=== PATIENT | male | born 1980 ===

== ENCOUNTER 2024-04-27 15:26 | Emergency (ER) | payer OTHER ==
[~2024-04-27] VITALS: Ht 162.6 cm; Wt 65.8 kg
[~2024-04-27 15:26] MED LIST: CITALOPRAM HBR20 M2 PO; HYDROXYZ HCL; LEVE500 PO; OXYACE5T PO; Prozac20 MG PO; Vistaril50 MG PO
[2024-04-27] MEDS ORDERED: Thiamine HCl 100 MG Tab PO ONE (15:40)
[2024-04-27] MEDS ORDERED: PHENobarbital Sodium 65MG / ML 1ML Vial IV ONE (15:40)
[2024-04-27] MEDS ORDERED: Multivitamins 1 Tab PO ONE (15:40)
[2024-04-27] MEDS ORDERED: Lactated Ringer's 1,000 ML IV ONE ×2 (15:40→15:50)
[2024-04-27] MEDS ORDERED: Folic Acid 1 MG TAB PO ONE (15:40)
[2024-04-27 15:57] LABS: BASOPHILS ABSOLUTE AUTO 0.03 K/mm3 (0.00-0.23); BASOPHILS PERCENT AUTO 0 % (0-2); EOSINOPHILS ABSOLUTE AUTO 0.01 K/mm3 (0.00-0.68); EOSINOPHILS PERCENT AUTO 0 % (0-6); Hematocrit 37.5 % (37.0-53.0); Hemoglobin 13.1 g/dL (13.5-17.5); IMMATURE GRAN ABSOLUTE AUTO 0.04 K/mm3 (0.00-0.10); IMMATURE GRAN PERCENT AUTO 1 % (0-1); LYMPHOCYTES ABSOLUTE AUTO 0.21 K/mm3 (0.84-5.20); LYMPHOCYTES PERCENT AUTO 2 % (21-46); MONOCYTES ABSOLUTE AUTO 0.55 K/mm3 (0.16-1.47); MONOCYTES PERCENT AUTO 6 % (4-13); Mean Corpuscular HGB 34.6 pg (26.0-34.0); Mean Corpuscular HGB Conc 34.9 g/dL (31.5-36.5); Mean Corpuscular Volume 99 fL (80-100); NEUTROPHILS ABSOLUTE AUTO 7.74 K/mm3 (1.96-9.15); NEUTROPHILS PERCENT AUTO 90 % (41-73); RDW Coefficient Variation 12.3 % (11.7-14.2); RDW Standard Deviation 45.1 fL (35.1-46.3); Red Blood Cell Count 3.79 M/mm3 (4.30-5.90); White Blood Cell Count 8.58 K/mm3 (4.00-11.30)
[2024-04-27 15:58] LABS: Mean Platelet Volume 9.8 fL (9.1-12.4); Platelet Count 66 K/mm3 (150-400)
[2024-04-27 16:18] LABS: Albumin, Blood 4.2 g/dL (3.4-5.0); Albumin/Globulin Ratio 1.3 (0.8-1.8); Bilirubin, Total 0.5 mg/dL (0.1-1.0); Bun/Creatinine Ratio 11.9 (12.0-20.0); Creatinine, Blood 0.67 mg/dL (0.60-1.20); Globulin, Blood 3.3 g/dL (2.2-4.0); Magnesium, Blood 1.8 mg/dL (1.6-2.4); Potassium, Blood 3.5 mmol/L (3.5-5.5); Total Protein, Blood 7.5 g/dL (6.4-8.2)
[2024-04-27] MEDS ORDERED: CHLO25 PO (16:29)
[2024-04-27 16:54] VITALS: BP 135/88
== END 2024-04-27 16:55 | disposition home or self-care (01) ==
LOC: ER 15:26
PROVIDERS: Emergency Medicine
DX: F10.939 Alcohol use, unspecified with withdrawal, unspecified (principal)
CPT/HCPCS: 80053; 83690; 83735; 85025; 96361; 96374; 99285; 99285-25; A9270; J2560; J7120

== ENCOUNTER 2025-05-13 19:34 | Inpatient (IN) | payer OTHER ==
[~2025-05-13] VITALS: Ht 162.6 cm; Wt 60.1 kg
[~2025-05-13 19:34] MED LIST changes: +CHLO25 PO
[2025-05-13] MEDS ORDERED: Midazolam HCl 1MG / ML 2ML Vial IV ONE (20:20)
[2025-05-13 20:22] LABS: BASOPHILS ABSOLUTE AUTO 0.04 K/mm3 (0.00-0.23); BASOPHILS PERCENT AUTO 1 % (0-2); EOSINOPHILS ABSOLUTE AUTO 0.00 K/mm3 (0.00-0.68); EOSINOPHILS PERCENT AUTO 0 % (0-6); Hematocrit 34.7 % (37.0-53.0); Hemoglobin 11.8 g/dL (13.5-17.5); IMMATURE GRAN ABSOLUTE AUTO 0.05 K/mm3 (0.00-0.10); IMMATURE GRAN PERCENT AUTO 1 % (0-1); LYMPHOCYTES ABSOLUTE AUTO 0.29 K/mm3 (0.84-5.20); LYMPHOCYTES PERCENT AUTO 4 % (21-46); MONOCYTES ABSOLUTE AUTO 0.81 K/mm3 (0.16-1.47); MONOCYTES PERCENT AUTO 10 % (4-13); Mean Corpuscular HGB Conc 34.0 g/dL (31.5-36.5); Mean Corpuscular Volume 105 fL (80-100); NEUTROPHILS ABSOLUTE AUTO 6.76 K/mm3 (1.96-9.15); NEUTROPHILS PERCENT AUTO 85 % (41-73); NRBC ABSOLUTE 0.00 K/mm3 (0.00-0.02); NRBC Auto 0.0 /100 WBC (0.0-0.2); RDW Coefficient Variation 12.2 % (11.7-14.2); RDW Standard Deviation 48.0 fL (35.1-46.3)
[2025-05-13 20:24] LABS: Platelet Count 47 K/mm3 (150-400)
[2025-05-13 20:25] LABS: Alanine Aminotransfer (ALT/SGP 68.0 U/L (12-78); Albumin, Blood 3.6 g/dL (3.4-5.0); Albumin/Globulin Ratio 1.3 (0.8-1.8); Anion Gap 20.0 mmol/L (3-11); Aspartate Aminotrans (AST/SGOT 89.0 U/L (12-37); Bilirubin, Total 0.7 mg/dL (0.1-1.0); Blood Urea Nitrogen 5.0 mg/dL (8-24); CO2, Blood 17.0 mmol/L (21-32); Calcium, Blood 8.4 mg/dL (8.5-10.1); Chloride, Blood 98.0 mmol/L (98-108); Creatinine, Blood 0.67 mg/dL (0.60-1.20); Ethanol (Alcohol), Blood, Med 5.0 mg/dL; Globulin, Blood 2.8 g/dL (2.2-4.0); Glucose, Blood 131.0 mg/dL (70-99); Potassium, Blood 3.2 mmol/L (3.5-5.5); Sodium, Blood 132.0 mmol/L (136-145); Total Protein, Blood 6.4 g/dL (6.4-8.2)
[2025-05-13] MEDS ORDERED: Folic Acid 1 MG TAB PO ONE (20:25)
[2025-05-13] MEDS ORDERED: NS 1,000 ML IV SCH (20:25)
[2025-05-13 21:00] VITALS: BP 129/89
[2025-05-13] MEDS ORDERED: Midazolam HCL 1 MG/ML 5MLVIAL IV ONE (21:10)
[2025-05-13] MEDS ORDERED: Mag Sulfate 1 GM/D5% 100ML 100 ML IV ONE (21:20)
[2025-05-13 21:30] VITALS: BP 141/90
[2025-05-13 21:40] LABS: pH Blood Venous 7.49 (7.34-7.37)
[2025-05-13 22:00] VITALS: BP 132/86
[2025-05-13 22:30] VITALS: BP 122/86
[2025-05-13 23:00] VITALS: BP 125/84
[2025-05-13 23:30] VITALS: BP 121/86
[2025-05-14] VITALS (22 sets, daily range): BP systolic 113–155; BP diastolic 82–111
--- NOTE | 2025-05-14 00:30 | NUR ---
ADMISSION NOTE PT ARRIVED TO UNIT ON GURNEY FROM ED. PT IN NO APPARENT DISTRESS. PT SELF TRANSFERRED TO OUR [facility] WITHOUT DIFFICULTY. PT ALERT AND ORIENTED. CIWA 7 FOR HEADACHE, TREMOR, ANXIETY. MEDICATED PER DEC. AFEBRILE. VSS. HEAD WOUND NOT VISUALIZED DUE TO PRESSURE DRESSING RECENTLY PLACED. COBAN AND GAUZE DRY VISUALLY. PT SAYS PAIN IS 4/10. PT DENIES CHEST PAIN/PRESSURE, SOB, AB PAIN, N/V. ACCORDING TO PT, HE HAS BEEN TRYING TO WEAN FROM ALCHOHOL FOR MANY WEEKS BY DRINKING 2-3 BEERS EVERY OTHER DAY. PT HAD A LOC VS SEIZURE EPISODE SEVERAL WEEKS AGO THAT BROUGHT HIM VIA AMBULANCE TO [facility] (UNFORTUNATELY WE DO NOT HAVE ACCESS TO THOSE RECORDS. THE EPISODE THAT BROUGHT HIM HERE: HE DRANK HALF A BEER AROUND 1400, THEN WATER. HE WAS PLAYING POOL. SITTING DOWN AND WAITING TURN, HE STOOD UP AND THEN LOST CONSCIOUSNESS AND WOKE UP IN AMBULANCE. A FRIEND REPORTEDLY OBSERVED SEIZURE LIKE BEHAVIOR. WILL REVIEW AND CONTINUE PLAN OF CARE.
[2025-05-14 03:55] LABS: BASOPHILS ABSOLUTE AUTO 0.03 K/mm3 (0.00-0.23); BASOPHILS PERCENT AUTO 1 % (0-2); EOSINOPHILS ABSOLUTE AUTO 0.01 K/mm3 (0.00-0.68); EOSINOPHILS PERCENT AUTO 0 % (0-6); Hematocrit 34.4 % (37.0-53.0); Hemoglobin 12.0 g/dL (13.5-17.5); IMMATURE GRAN ABSOLUTE AUTO 0.03 K/mm3 (0.00-0.10); IMMATURE GRAN PERCENT AUTO 1 % (0-1); LYMPHOCYTES ABSOLUTE AUTO 0.39 K/mm3 (0.84-5.20); LYMPHOCYTES PERCENT AUTO 7 % (21-46); MONOCYTES ABSOLUTE AUTO 0.48 K/mm3 (0.16-1.47); MONOCYTES PERCENT AUTO 9 % (4-13); Mean Corpuscular HGB Conc 34.9 g/dL (31.5-36.5); Mean Corpuscular Volume 102 fL (80-100); NEUTROPHILS ABSOLUTE AUTO 4.60 K/mm3 (1.96-9.15); NEUTROPHILS PERCENT AUTO 83 % (41-73); NRBC ABSOLUTE 0.00 K/mm3 (0.00-0.02); NRBC Auto 0.0 /100 WBC (0.0-0.2); RDW Coefficient Variation 12.1 % (11.7-14.2); RDW Standard Deviation 45.4 fL (35.1-46.3)
[2025-05-14 04:05] LABS: Platelet Count 42 K/mm3 (150-400)
[2025-05-14 04:13] LABS: Alanine Aminotransfer (ALT/SGP 62.0 U/L (12-78); Albumin, Blood 3.4 g/dL (3.4-5.0); Albumin/Globulin Ratio 1.2 (0.8-1.8); Anion Gap 10.0 mmol/L (3-11); Aspartate Aminotrans (AST/SGOT 77.0 U/L (12-37); Bilirubin, Total 0.8 mg/dL (0.1-1.0); Blood Urea Nitrogen 4.0 mg/dL (8-24); CO2, Blood 25.0 mmol/L (21-32); Calcium, Blood 8.0 mg/dL (8.5-10.1); Chloride, Blood 102.0 mmol/L (98-108); Creatinine, Blood 0.67 mg/dL (0.60-1.20); Globulin, Blood 2.8 g/dL (2.2-4.0); Glucose, Blood 76.0 mg/dL (70-99); Potassium, Blood 3.1 mmol/L (3.5-5.5); Sodium, Blood 134.0 mmol/L (136-145); Total Protein, Blood 6.2 g/dL (6.4-8.2)
--- NOTE | 2025-05-14 05:57 | NUR ---
SHIFT SUMMARY PT LYING IN BED SLEEPING, AWAKES TO VOICE AND IS ALERT AND ORIENTED TO ALL. PT IS TREMULOUS, HAS A HEADACHE (THOUGH LIKELY DIRECTLY RELATED TO FALL YESTERDAY), MILD DIAPHORESIS/ANXIETY, GIVING HIM A CIWA OF 7. PT MEDICATION WITH 50 MG LIBRIUM AND 1 MG ATIVAN ON TWO SEPARATE OCCASIONS. AFEBRILE. VSS. SINUS RHYTHM IN THE 90'S WITH STABLE TO MILDLY ELEVATED BP. NO CHEST PAIN/PRESSURE, SOB. NO AB PAIN. LUNGS CLEAR. NO N/V. ONE EPISODE OF INCONTINENT, MID-URINATION DIARRHEA DURING SHIFT. 1.2 L PALE YELLOW URINE OUTPUT. BEDSIDE SHIFT REPORT GIVEN TO DIAMANTE COSBY RN.
--- NOTE | 2025-05-14 06:20 | NUR ---
UPDATE: PT NPO FOR UNKNOWN REASON. PT PASSED [place] [facility]. WILL RELAY THIS INFO TO DAY RN SO THAT PT'S NUTRITION DOES NOT SUFFER UNNECCESARILY.
[2025-05-14] MEDS ORDERED: NS 250 ML IV PRN (07:55)
[2025-05-14 09:06] LABS: Magnesium, Blood 2.4 mg/dL (1.6-2.4); Phosphorus, Blood 2.9 mg/dL (2.5-4.9)
--- NOTE | 2025-05-14 20:36 | NUR ---
ASSUME CARE: BEDSIDE REPORT RECIEVED FROM DAYSHIFT RN. PT A/Ox4 AND ABLE TO MAKE NEEDS KNOWN. VSS, MONITOR SHOWS SINUS TACH, RATE 120-130s. PT ABLE TO AMBULATE WITH NURSE ASSIST. PT CIWA 3, SOME TREMORS NOTED. PT STATES HE IS ALWAYS TREMULOUS. PT INSTRUCTED TO USE CALL LIGHT FOR ASSISTANCE. WILL UPDATE NEEDED.
[2025-05-15] VITALS (16 sets, daily range): BP systolic 102–135; BP diastolic 77–97
[2025-05-15 03:44] LABS: BASOPHILS ABSOLUTE AUTO 0.03 K/mm3 (0.00-0.23); BASOPHILS PERCENT AUTO 1 % (0-2); EOSINOPHILS ABSOLUTE AUTO 0.06 K/mm3 (0.00-0.68); EOSINOPHILS PERCENT AUTO 1 % (0-6); Hematocrit 38.5 % (37.0-53.0); Hemoglobin 13.1 g/dL (13.5-17.5); IMMATURE GRAN ABSOLUTE AUTO 0.02 K/mm3 (0.00-0.10); IMMATURE GRAN PERCENT AUTO 0 % (0-1); LYMPHOCYTES ABSOLUTE AUTO 0.69 K/mm3 (0.84-5.20); LYMPHOCYTES PERCENT AUTO 15 % (21-46); MONOCYTES ABSOLUTE AUTO 0.57 K/mm3 (0.16-1.47); MONOCYTES PERCENT AUTO 12 % (4-13); Mean Corpuscular HGB Conc 34.0 g/dL (31.5-36.5); Mean Corpuscular Volume 103 fL (80-100); NEUTROPHILS ABSOLUTE AUTO 3.32 K/mm3 (1.96-9.15); NEUTROPHILS PERCENT AUTO 71 % (41-73); NRBC ABSOLUTE 0.00 K/mm3 (0.00-0.02); NRBC Auto 0.0 /100 WBC (0.0-0.2); Platelet Count 53 K/mm3 (150-400); RDW Coefficient Variation 11.9 % (11.7-14.2); RDW Standard Deviation 44.8 fL (35.1-46.3)
[2025-05-15 04:15] LABS: Anion Gap 10.0 mmol/L (3-11); Blood Urea Nitrogen 11.0 mg/dL (8-24); CO2, Blood 23.0 mmol/L (21-32); Calcium, Blood 8.9 mg/dL (8.5-10.1); Chloride, Blood 104.0 mmol/L (98-108); Creatinine, Blood 0.65 mg/dL (0.60-1.20); Glucose, Blood 91.0 mg/dL (70-99); Potassium, Blood 3.2 mmol/L (3.5-5.5); Sodium, Blood 134.0 mmol/L (136-145)
--- NOTE | 2025-05-15 05:36 | NUR ---
SHIFT SUMMARY: PT A/Ox4 AND ABLE TO MAKE NEEDS KNOWN. PT ABLE TO SLEEP FOR MOST OF THE NIGHT. VSS, MONITOR SHOWS SINUS RYTHM TO SINUS TACH, RATE 80-130s, PT MAINLY TACHY W/ACTIVITY. CIWA 2, PT MILDLY TREMULOUS. PT ABLE TO AMBULATE TO TOILET W/ SBA, UNSTEADY ON FEET AT TIMES. PT DENIES PAIN TO HEAD LAC. WILL REPORT TO ONCOMING RN.
[2025-05-15] MEDS ORDERED: Peg 400/Hypromellose/Glycerin 15 DROP/ML BTL BOTHEYES PRN (14:40)
[2025-05-15] MEDS ORDERED: Dextran/Hypromellose/Glycerin 15 DROP/ML BTL BOTHEYES PRN (14:45)
[2025-05-16 03:23] VITALS: BP 106/88
[2025-05-16 03:40] LABS: BASOPHILS ABSOLUTE AUTO 0.05 K/mm3 (0.00-0.23); BASOPHILS PERCENT AUTO 1 % (0-2); EOSINOPHILS ABSOLUTE AUTO 0.06 K/mm3 (0.00-0.68); EOSINOPHILS PERCENT AUTO 1 % (0-6); Hematocrit 37.0 % (37.0-53.0); Hemoglobin 12.7 g/dL (13.5-17.5); IMMATURE GRAN ABSOLUTE AUTO 0.02 K/mm3 (0.00-0.10); IMMATURE GRAN PERCENT AUTO 1 % (0-1); LYMPHOCYTES ABSOLUTE AUTO 0.69 K/mm3 (0.84-5.20); LYMPHOCYTES PERCENT AUTO 16 % (21-46); MONOCYTES ABSOLUTE AUTO 0.65 K/mm3 (0.16-1.47); MONOCYTES PERCENT AUTO 15 % (4-13); Mean Corpuscular HGB Conc 34.3 g/dL (31.5-36.5); Mean Corpuscular Volume 103 fL (80-100); NEUTROPHILS ABSOLUTE AUTO 2.96 K/mm3 (1.96-9.15); NEUTROPHILS PERCENT AUTO 67 % (41-73); NRBC ABSOLUTE 0.00 K/mm3 (0.00-0.02); NRBC Auto 0.0 /100 WBC (0.0-0.2); Platelet Count 67 K/mm3 (150-400); RDW Coefficient Variation 11.9 % (11.7-14.2); RDW Standard Deviation 45.1 fL (35.1-46.3)
[2025-05-16 03:58] LABS: Alanine Aminotransfer (ALT/SGP 65.0 U/L (12-78); Albumin, Blood 3.3 g/dL (3.4-5.0); Albumin/Globulin Ratio 1.0 (0.8-1.8); Anion Gap 10.0 mmol/L (3-11); Aspartate Aminotrans (AST/SGOT 69.0 U/L (12-37); Bilirubin, Total 0.5 mg/dL (0.1-1.0); Blood Urea Nitrogen 12.0 mg/dL (8-24); CO2, Blood 25.0 mmol/L (21-32); Calcium, Blood 9.2 mg/dL (8.5-10.1); Chloride, Blood 105.0 mmol/L (98-108); Creatinine, Blood 0.7 mg/dL (0.60-1.20); Globulin, Blood 3.2 g/dL (2.2-4.0); Glucose, Blood 105.0 mg/dL (70-99); Magnesium, Blood 1.9 mg/dL (1.6-2.4); Potassium, Blood 3.5 mmol/L (3.5-5.5); Sodium, Blood 136.0 mmol/L (136-145); Total Protein, Blood 6.5 g/dL (6.4-8.2)
--- NOTE | 2025-05-16 04:27 | NUR ---
PT TRANSFERED TO UNIT DURING SHIFT. PATIENT ALERT AND ORIENTED X4. UP INDEPENDENTLY IN ROOM. SEIZURE PRECAUTIONS IN PLACE. ABLE TO MAKE NEEDS KNOWN. CIWA SCORE AT 0400 WAS 1. BED IN LOW POSITION WITH WHEELS LOCKED. CALL LIGHT WITHIN REACH.
[2025-05-16 07:25] VITALS: BP 101/89
[2025-05-16] MEDS ORDERED: ONE DAILY MUL400 MCG PO (09:32)
[2025-05-16] MEDS ORDERED: B-1100 M2 PO (09:32)
[2025-05-16] MEDS ORDERED: Nicoderm Cq1 EAC1 TOP (09:32)
--- NOTE | 2025-05-16 12:31 | NUR ---
ASSUMED CARE PT IS A/O X 4 ANXIOUS TO GO HOME AND DRINK (PER PATIENT). DR PABON EARLY IN AND STATED HE WILL DC PT. PT HAPPY AND WALKING IN [place], DOES NOT WANT MORNING MEDS REQUESTED IV TO BE REMOVED AND WAS GONG TO LEAVE. I TOLD PT NOT TO LEAVE AMA AND HE DECIDED HE WOULD WAIT FOR DC INSTRUCTIONS. 929 INSTRUCTIONS GIVEN PT REFUSED \WHEELCHAIR AND LEFT.
== END 2025-05-16 09:57 | disposition home or self-care (01) | DRG 897 ==
LOC: ER 19:34 → ICUE 23:08 → MEDS 05-16 03:30
PROVIDERS: Emergency Medicine; Internal Medicine; ADMIT Student in an Organized Health Care Education/Training Program
PROC: 0HQ0XZZ Repair Scalp Skin, External Approach (ICD-10-PCS; 2025-05-13)
PROC: HZ2ZZZZ Detoxification Services for Substance Abuse Treatment (ICD-10-PCS; principal; 2025-05-14)
DX: F10.231 Alcohol dependence with withdrawal delirium (principal); E87.20 Acidosis, unspecified; E87.1 Hypo-osmolality and hyponatremia; G40.909 Epilepsy, unspecified, not intractable, without status epilepticus; F41.9 Anxiety disorder, unspecified; F17.210 Nicotine dependence, cigarettes, uncomplicated; I45.10 Unspecified right bundle-branch block; D69.6 Thrombocytopenia, unspecified; E87.6 Hypokalemia; S01.01XA Laceration without foreign body of scalp, initial encounter; R74.01 Elevation of levels of liver transaminase levels; F11.90 Opioid use, unspecified, uncomplicated; D64.9 Anemia, unspecified; S09.90XA Unspecified injury of head, initial encounter; Z79.899 Other long term (current) drug therapy; W19.XXXA Unspecified fall, initial encounter
CPT/HCPCS: 12001; 36415; 70450; 72125; 80048; 80053; 80320; 82803; 83735; 84100; 85025; 93005; 93010; 94762; 96365-59; 96375-59; 96376-59; 99285-25; A9270; G0378; J2250; J3411; J3475; J7030; J7050

== ENCOUNTER 2025-06-24 13:34 | Inpatient (IN) | payer OTHER ==
[~2025-06-24] VITALS: Ht 170.2 cm; Wt 57.0 kg
[2025-06-24] VITALS (10 sets, daily range): BP systolic 118–134; BP diastolic 81–100
[~2025-06-24 13:34] MED LIST changes: +B-1100 M2 PO; +Nicoderm Cq1 EAC1 TOP; +ONE DAILY MUL400 MCG PO
[2025-06-24] MEDS ORDERED: LORazepam 2 MG/ML 1ML Injection IV ONE (13:45)
[2025-06-24] MEDS ORDERED: Diazepam 5 MG / ML 2ML SYR IV ONE ×2 (14:00→14:40)
[2025-06-24 14:06] LABS: pH Blood Venous 7.03 (7.34-7.37)
[2025-06-24] MEDS ORDERED: NS 1,000 ML IV SCH (14:15)
[2025-06-24 14:16] LABS: BASOPHILS ABSOLUTE AUTO 0.07 K/mm3 (0.00-0.23); BASOPHILS PERCENT AUTO 1 % (0-2); EOSINOPHILS ABSOLUTE AUTO 0.01 K/mm3 (0.00-0.68); EOSINOPHILS PERCENT AUTO 0 % (0-6); Hematocrit 46.5 % (37.0-53.0); Hemoglobin 15.1 g/dL (13.5-17.5); IMMATURE GRAN ABSOLUTE AUTO 0.03 K/mm3 (0.00-0.10); IMMATURE GRAN PERCENT AUTO 0 % (0-1); LYMPHOCYTES ABSOLUTE AUTO 0.95 K/mm3 (0.84-5.20); LYMPHOCYTES PERCENT AUTO 11 % (21-46); MONOCYTES ABSOLUTE AUTO 1.30 K/mm3 (0.16-1.47); MONOCYTES PERCENT AUTO 15 % (4-13); Mean Corpuscular HGB Conc 32.5 g/dL (31.5-36.5); Mean Corpuscular Volume 111 fL (80-100); NEUTROPHILS ABSOLUTE AUTO 6.33 K/mm3 (1.96-9.15); NEUTROPHILS PERCENT AUTO 73 % (41-73); NRBC ABSOLUTE 0.00 K/mm3 (0.00-0.02); NRBC Auto 0.0 /100 WBC (0.0-0.2); Platelet Count 96 K/mm3 (150-400); RDW Coefficient Variation 12.6 % (11.7-14.2); RDW Standard Deviation 52.4 fL (35.1-46.3)
[2025-06-24 14:33] LABS: Alanine Aminotransfer (ALT/SGP 42 U/L (12-78); Albumin, Blood 4.6 g/dL (3.4-5.0); Albumin/Globulin Ratio 1.2 (0.8-1.8); Anion Gap 21 mmol/L (3-11); Aspartate Aminotrans (AST/SGOT 54 U/L (12-37); Bilirubin, Total 0.6 mg/dL (0.1-1.0); Blood Urea Nitrogen 7 mg/dL (8-24); CO2, Blood 17 mmol/L (21-32); Calcium, Blood 10.3 mg/dL (8.5-10.1); Chloride, Blood 106 mmol/L (98-108); Creatinine, Blood 0.77 mg/dL (0.60-1.20); Ethanol (Alcohol), Blood, Med <3 mg/dL; Globulin, Blood 3.7 g/dL (2.2-4.0); Glucose, Blood 171 mg/dL (70-99); Potassium, Blood 4.3 mmol/L (3.5-5.5); Sodium, Blood 140 mmol/L (136-145); Total Protein, Blood 8.3 g/dL (6.4-8.2)
[2025-06-24] MEDS ORDERED: Ondansetron HCl 2 MG / ML 2ML Vial IV PRN (16:15)
[2025-06-24] MEDS ORDERED: LORazepam 2 MG/ML 1ML Injection IV PRN (16:15)
[2025-06-24] MEDS ORDERED: D5W-NS 1,000 ML IV SCH (16:15)
--- NOTE | 2025-06-24 19:06 | NUR ---
ADMIT NOTE: PT IS ALERT AND ORIENTED X 4, ABLE TO COMMUNICATE NEEDS. CIWA SCORE 8, LIBRIUM GIVEN PER DEC. PT HAS TREMORS IN UPPER EXT. PT DENIES ANY PAIN AT THIS TIME. PT IN SR WITH HR IN THE 80'S, BP STABLE. PT ON RA, NO RESP DISTRESS NOTED. PT DENIES NAUSEA/VOMITING, LAST BM 06/24. PT INCONTINENT AT TIMES, PUREWICK IN PLACE TO SUCTION. PT ORIENTED TO ROOM/CALL LIGHT SYSTEM. BED ALARM PLACED.
[2025-06-25] VITALS (19 sets, daily range): BP systolic 104–159; BP diastolic 84–105
[2025-06-25 03:42] LABS: Hematocrit 37.9 % (37.0-53.0); Hemoglobin 12.7 g/dL (13.5-17.5); Mean Corpuscular HGB Conc 33.5 g/dL (31.5-36.5); NRBC ABSOLUTE 0.00 K/mm3 (0.00-0.02); NRBC Auto 0.0 /100 WBC (0.0-0.2); Platelet Count 57 K/mm3 (150-400); RDW Coefficient Variation 12.3 % (11.7-14.2); RDW Standard Deviation 48.2 fL (35.1-46.3)
[2025-06-25 03:51] LABS: Mean Corpuscular Volume 105 fL (80-100)
[2025-06-25 03:57] LABS: Magnesium, Blood 2.3 mg/dL (1.6-2.4)
[2025-06-25 04:06] LABS: Albumin, Blood 3.3 g/dL (3.4-5.0); Anion Gap 7 mmol/L (3-11); Blood Urea Nitrogen 5 mg/dL (8-24); CO2, Blood 27 mmol/L (21-32); Chloride, Blood 104 mmol/L (98-108); Creatinine, Blood 0.72 mg/dL (0.60-1.20); Glucose, Blood 85 mg/dL (70-99); Phosphorus, Blood 3.6 mg/dL (2.5-4.9); Potassium, Blood 3.1 mmol/L (3.5-5.5); Sodium, Blood 135 mmol/L (136-145)
[2025-06-25 04:07] LABS: Calcium, Blood 8.1 mg/dL (8.5-10.1)
--- NOTE | 2025-06-25 05:37 | NUR ---
SHIFT SUMMARY A/O X3, OCCAS DISORIENTED TO DATE <2 DAYS, PLEASANT AND COOPERATIVELY FOLLOWING COMMANDS. MEDS GIVEN PER CIWA PRN T/O NIGHT. VSS AND AFEBRILE T/O SHIFT. DENIES DISTRESS AT THIS TIME. WILL UPDATE DAY RN WITH ALL OUTSTANDING ISSUES.
[2025-06-25] MEDS ORDERED: Enoxaparin 40 MG/0.4 ML SYR SC SCH (09:00)
--- NOTE | 2025-06-25 18:26 | NUR ---
SHIFT SUMMARY; PT IS ALERT AND ORIENTED TO SELF, PROGRESSIVELY GETTING MORE CONFUSED/ANXIOUS T/O SHIFT. PT DISORIENTED TO TIME/PLACE/SITUATION. MAX CIWA 18, PRN ATIVAN/LIBRIUM GIVEN PER DEC. PT ATTMEPTING TO GET OUT OF BED NOW. NOTIFIED, ORDERS TO PLACE PT IN ICU STATUS, SEE NEW MED ORDERS. PT REMAINS ON RA WITH SPO2 ABOVE 92% NO RESP DISTRESS NOTED. PT IN ST WITH HR BETWEEN 90-110'S , BLOOD PRESSURE STABLE. PT INCONT OF URINE ANS STOOL, ATTENDS IN PLACE. PT HAVING MULTIPLE LOOSE STOOLS, NOTIFIED. PLAN OF CARE ONGOING
[2025-06-25] MEDS ORDERED: LORazepam 2 MG/ML 1ML Injection IV PRN ×2 (18:35)
--- NOTE | 2025-06-25 18:58 | NUR ---
UPDATE: PT PULLED OUT IV, ATTEMPTING TO GET OUT OF BED. PT AGITATED WANTING TO GO " DOWN THE STREET" PT CONFUSED, ORIENTED TO SELF ONLY. PT HAVING VISUAL HALLUCINATIONS. PRECEDEX DRIP STARTED AT 0.4MCG/KG/HR.
--- NOTE | 2025-06-25 19:00 | NUR ---
ASSUMPTION OF CARE CARE OF PT ASSUMED FOLLOWING BEDSIDE SHIFT REPORT FROM DAY RN. PT IS ALERT AND ORIENTED TO SELF ONLY, PULLING AT CORDS AND TRYING TO GET OUT OF BED. PRECEDEX INFUSING AT 0.4 AND CIWA 14. WILL MEDICATE NEEDED. MAY REQUIRE RESTRAINTS IF INCREASING MEDICATION DOES NOT CALM PT DOWN. VSS. WILL REVIEW AND CONTINUE PLAN OF CARE.
[2025-06-26] VITALS (21 sets, daily range): BP systolic 99–156; BP diastolic 71–116
[2025-06-26 04:40] LABS: Anion Gap 9.0 mmol/L (3-11); Blood Urea Nitrogen 7.0 mg/dL (8-24); CO2, Blood 23.0 mmol/L (21-32); Calcium, Blood 8.8 mg/dL (8.5-10.1); Chloride, Blood 110.0 mmol/L (98-108); Creatinine, Blood 0.59 mg/dL (0.60-1.20); Glucose, Blood 117.0 mg/dL (70-99); Magnesium, Blood 2.2 mg/dL (1.6-2.4); Phosphorus, Blood 3.9 mg/dL (2.5-4.9); Potassium, Blood 3.3 mmol/L (3.5-5.5); Sodium, Blood 139.0 mmol/L (136-145)
--- NOTE | 2025-06-26 05:21 | NUR ---
Shift summary Pt lying in bed sleeping, awakes to voice and is alert to drowsy on Precedex 0.9 mcg/kg/hr. Pt oriented to self only and fluctuates between cooperative and trying to get out of bed and pull at cords, lines. Pt given 3 x 2mg Ativan throughout shift for CIWAs 14-17, with tremor and anxiety being most notable withdrawal symptoms. VSS, afebrile, sinus rhythm and stable BP with 100% saturation on RA. No complaints of chest pain/pressure, SOB, ab pain, n/v during shift. Loose stools reported on day shift yesterday did not continue during shift stacker. No BMs. 600ml yellow to pale yellow urine out during shift with several incontinent voids as well. Condom catheter currently in place and patent. 40 KCL ordered by provider for K of 3.3. Bedside shift report given to oncoming RN.
[2025-06-26 08:50] LABS: BASOPHILS ABSOLUTE AUTO 0.02 K/mm3 (0.00-0.23); BASOPHILS PERCENT AUTO 0 % (0-2); EOSINOPHILS ABSOLUTE AUTO 0.05 K/mm3 (0.00-0.68); EOSINOPHILS PERCENT AUTO 1 % (0-6); Hematocrit 42.7 % (37.0-53.0); Hemoglobin 14.9 g/dL (13.5-17.5); IMMATURE GRAN ABSOLUTE AUTO 0.01 K/mm3 (0.00-0.10); IMMATURE GRAN PERCENT AUTO 0 % (0-1); LYMPHOCYTES ABSOLUTE AUTO 0.29 K/mm3 (0.84-5.20); LYMPHOCYTES PERCENT AUTO 5 % (21-46); MONOCYTES ABSOLUTE AUTO 0.46 K/mm3 (0.16-1.47); MONOCYTES PERCENT AUTO 9 % (4-13); Mean Corpuscular HGB Conc 34.9 g/dL (31.5-36.5); Mean Corpuscular Volume 103 fL (80-100); NEUTROPHILS ABSOLUTE AUTO 4.61 K/mm3 (1.96-9.15); NEUTROPHILS PERCENT AUTO 85 % (41-73); NRBC ABSOLUTE 0.00 K/mm3 (0.00-0.02); NRBC Auto 0.0 /100 WBC (0.0-0.2); Platelet Count 53 K/mm3 (150-400); RDW Coefficient Variation 11.9 % (11.7-14.2); RDW Standard Deviation 45.5 fL (35.1-46.3)
--- NOTE | 2025-06-26 17:10 | NUR ---
SHIFT SUMMARY PT ASLEEP IN BED AT TIME OF BEDSIDE REPORT. PT ALERT AND ORIENTED X 3-4, OCCASIONALLY IS CONFUSED ABOUT DATE, IS EASILY REDIRECTABLE. CIWA SCORES RANGE FROM 8-11, TREMULOUS AND DIAPHORECTIC T/O SHIFT. PT IS ABLE TO AMBULATE W/ MINIMAL ASSIST TO MANAGE CORDS. SATURATING >95% ON RA, BREATH SOUNDS CLEAR, BREATHS EVEN AND UNLABORED. NSR TO SINUS TACH ON MONITOR, MAPS>65, CAP REFILL <3 SEC, NO NOTED EDEMA. ABD SOFT AND NONTENDER, BOWEL SOUNDS ACTIVE, TOLERATED MEALS T/O SHIFT. PT USES URINAL PER REQUEST, HAS BEEN CONTINENT T/O SHIFT. SKIN INTACT W/ SCATTERED BRUISING AND SCABS. ACCESS: PIV X2
--- NOTE | 2025-06-26 20:00 | NUR ---
ASSUMPTION OF CARE CARE OF PT ASSUMED FOLLOWING BEDSIDE SHIFT REPORT FROM DAY RN. PT IS SITTING IN CHAIR WITH GUESTS IN THE ROOM. ALERT AND ORIENTED TO ALL. CIWA 11. PT MEDICATED PER DEC. PT'S HR IS LABILE AND SINUS TACHYCARDIA. 110-140, WILL MONITOR. BP STABLE. SATURATION > 95% ON RA. PT DENIES CHEST PAIN/PRESSURE, SOB, AB PAIN, N/V. PT COUNSELED TO STAY OFF PHONE TALKING ABOUT EX AND CHILD IN ORDER TO KEEP HEART RATE DOWN. WILL REVIEW AND CONTINUE PLAN OF CARE.
[2025-06-27 03:23] VITALS: BP 126/91
[2025-06-27 03:47] LABS: Hematocrit 42.4 % (37.0-53.0); Hemoglobin 14.4 g/dL (13.5-17.5); Mean Corpuscular HGB Conc 34.0 g/dL (31.5-36.5); Mean Corpuscular Volume 104 fL (80-100); NRBC ABSOLUTE 0.00 K/mm3 (0.00-0.02); NRBC Auto 0.0 /100 WBC (0.0-0.2); Platelet Count 64 K/mm3 (150-400); RDW Coefficient Variation 12.1 % (11.7-14.2); RDW Standard Deviation 47.3 fL (35.1-46.3)
[2025-06-27 04:08] LABS: Alanine Aminotransfer (ALT/SGP 40.0 U/L (12-78); Albumin, Blood 4.1 g/dL (3.4-5.0); Albumin/Globulin Ratio 1.3 (0.8-1.8); Anion Gap 9.0 mmol/L (3-11); Aspartate Aminotrans (AST/SGOT 35.0 U/L (12-37); Bilirubin, Total 0.7 mg/dL (0.1-1.0); Blood Urea Nitrogen 14.0 mg/dL (8-24); CO2, Blood 25.0 mmol/L (21-32); Calcium, Blood 9.1 mg/dL (8.5-10.1); Chloride, Blood 101.0 mmol/L (98-108); Creatinine, Blood 0.81 mg/dL (0.60-1.20); Globulin, Blood 3.2 g/dL (2.2-4.0); Glucose, Blood 84.0 mg/dL (70-99); Potassium, Blood 3.4 mmol/L (3.5-5.5); Sodium, Blood 132.0 mmol/L (136-145); Total Protein, Blood 7.3 g/dL (6.4-8.2)
--- NOTE | 2025-06-27 07:34 | NUR ---
SHIFT SUMMARY PT SITTING ON BED IN MODERATE DISTRESS RELATED TO ANXIETY. PT TRIED TO LEAVE AMA AT 0630. AT THE TIME PT ORIENTED AND ALERT WITH MILD CONFUSION ABOUT EXACT DATE. PT TREMULOUS AND FAIRLY STEADY ON FEET, THOUGH THIS RN WITNESSED PT STUMBLE AND CATCH HIMSELF ON SIDE OF BED. WITH THE ASSISTANCE OF PRODUCT SUPPORT REP, A LONG CONVERSATION, ALONG WITH SOME PLEADING, LED TO PT AGREEING TO WAIT TO SEE THE MD BEFORE LEAVING. PT ETOH WITHDRAWALS WERE TREATED DURING SHIFT WITH LIBRIUM AND ATIVAN WITH LAST DOSES BEING MANY HOURS AGO, JUST BEFORE 0300. CIWA SCORES RANGED FROM 11-17. PT DID NOT SLEEP, EVEN AFTER INCREASED DOSAGE OF ATIVAN WELL TRAZODONE WAS ADMINISTERED. PT SPENT THE LAST 4 HOURS OF SHIFT STANDING NEXT TO BED, OR SITTING ON EDGE OF BED, AND WALKING AROUND ROOM LOOKING FOR WALLET THAT WAS NEVER SEEN BY ICU STAFF, FAR THIS RN KNOWS. PT CONTINUED TO REMOVED LINES AND CORDS BUT WHEN ABLE TO MONITOR, HR WAS SINUS RHYTHM WITH INCREASED RATE 100-140. BP WAS STABLE TO MILDLY ELEVATED. 02 SATURATION REMAINED ABOVE 95% ON RA. PT DENIED CHEST PAIN/PRESSURE, SOB, AB PAIN, N/V THROUGHOUT SHIFT. NO BM'S. 250ML OF OBSERVED URINE OUTPUT THOUGH PT MAY HAVE HAD LARGE INCONTINENT VOID (HE SAYS IT WAS WATER). BEDSIDE SHIFT REPORT GIVEN TO ONCOMING RN AND PT WAS IN THE ROOM AT THIS TIME, WEARING HIS OWN CLOTHES, BUT WITH TWO PIV'S STILL IN PLACE.
[2025-06-27 07:59] VITALS: BP 108/79
--- NOTE | 2025-06-27 10:05 | NUR ---
AM NOTE: THIS RN ASSUMED CARE OF PT AT APPROX 0700, BEDSIDE REPORT FROM NOC RN. PT ALERT, STANDING UP/PACING IN ROOM. CONVERSING W/ STAFF, EXPRESSING DESIRE TO LEAVE HOSPITAL TODAY. ORIENTED TO PERSON & SITUATION (ABLE TO STATE THAT HE IS UNDERGOING ETOH W/D); STATES YEAR IS 1983 & HE IS AT HOME W/ HIS MOM IN [place]. CIWA 12, MEDICATED PER EMAR. VSS. PT UNWILLING TO WEAR CONTINUOUS FIRST COOK AT START OF SHIFT, AWARE. PT IS NOW MEDICAL W/O TELE STATUS. PT'S MOM CALLED THIS AM, SPOKE W/ DESIGN MAINTENANCE ENGINEER. PT'S MOM STATES PT IS ANXIOUS ABOUT DISCHARGE DUE TO VISITATION W/ HIS SON. EXTENSIVE EDUCATION PROVIDED BY THIS RN REGARDING ETOH W/D, COMMUNITY RESOURCES, & TOBACCO CESSATION. PT EXPRESSES DESIRE TO QUIT DRINKING & IS AGREEABLE TO STAY IN THE HOSPITAL AT THIS TIME.
[2025-06-27 14:46] VITALS: BP 128/89
--- NOTE | 2025-06-27 16:42 | NUR ---
END OF SHIFT NOTE: NO ACUTE EVENTS THIS SHIFT. PT A/OX2-4, COOPERATIVE W/ ALL CARE. CIWA 3-12, MEDICATED W/ LIBRIUM PER EMAR. VSS. HR 110-120'S, NO BENEFITS SALES CONSULTANT PER ORDERS. SBP 100-120'S, MAP >65. SPO2 >95% ON RA. AFEBRILE. INDEPENDENT IN ROOM & TO TOILET. TOLERATING PO INTAKE WELL. ABLE SHOWER INDEPENDENTLY THIS AFTERNOON. PT IS HOPEFUL HE WILL BE ABLE TO DISCHARGE TOMORROW BUT IS AGREEABLE TO STAYING UNTIL DISCHARGE IS RECOMMENDED. CALL LIGHT IN REACH.
--- NOTE | 2025-06-27 21:00 | NUR ---
ASSUMPTION OF CARE CARE OF PT ASSUMED FOLLOWING BEDSIDE SHIFT REPORT FROM DAY RN. PT UP IN ROOM CLEANING. IN NO APPARENT DISTRESS, COOPERATIVE AND CALM. PT ALERT AND ORIENTED TO ALL EXCEPT FOR EXACT DATE. PT ALSO CONFUSED ABOUT MOTHER BRINGING HIM HIS WALLET. PT NEEDS SLEEP. VSS. HR 124. BP STABLE, MAP > 65. 99% SATURATION ON RA. PT DENIES CHEST PAIN/PRESSURE AND SOB, AB PAIN, N/V. CIWA 7. MEDICATED WITH LIBRIUM PRN. PT IS MED NO TELE. WILL REVIEW AND CONTINUE PLAN OF CARE.
[2025-06-27 21:04] VITALS: BP 125/79
[2025-06-28] MEDS ORDERED: Multivitamins 1 Tab PO SCH (09:00)
[2025-06-28 09:44] VITALS: BP 114/96
--- NOTE | 2025-06-28 09:52 | NUR ---
AM NOTE: THIS RN ASSUMED CARE OF PT AT APPROX 0700. PT SLEEPING AT START OF SHIFT, ABLE TO SLEEP WELL FOR APPROX 2 HRS. ALERT, ORIENTED X4 THIS MORNING. CIWA 0-1. PT REPORTS FEELING MUCH BETTER THIS AM, STATES HE FEELS MUCH STEADIER ON HIS FEET & IS MUCH LESS TREMULOUS. VSS. PT IS MEDICAL W/O TELE STATUS, HOPING TO DISCHARGE TODAY. SITTING UP IN CHAIR EATING BREAKFAST, CALL LIGHT IN REACH.
[2025-06-28 10:09] LABS: Anion Gap 10.0 mmol/L (3-11); Blood Urea Nitrogen 10.0 mg/dL (8-24); CO2, Blood 23.0 mmol/L (21-32); Calcium, Blood 9.5 mg/dL (8.5-10.1); Chloride, Blood 102.0 mmol/L (98-108); Creatinine, Blood 0.77 mg/dL (0.60-1.20); Glucose, Blood 91.0 mg/dL (70-99); Potassium, Blood 3.6 mmol/L (3.5-5.5); Sodium, Blood 131.0 mmol/L (136-145)
[2025-06-28] MEDS ORDERED: CHLO25 PO ×2 (11:40→11:46)
[2025-06-28] MEDS ORDERED: B-1100 M1 PO (11:43)
[2025-06-28] MEDS ORDERED: THEREMS MULTI400 MCG PO (11:43)
--- NOTE | 2025-06-28 12:37 | NUR ---
DISCHARGE: PT A/OX4, CIWA 0-1. MEDICATION EDUCATION PROVIDED BY THIS RN WELL DISCHARGE INSTRUCTIONS AND FOLLOW UP INFORMATION. PT EXPRESSES VERBAL UNDERSTANDING. PT DOES NOT WANT THIS RN TO CALL HIS MOTHER TO NOTIFY OF DISCHARGE, STATES HE HAS ARRANGED HIS OWN DISCHARGE RIDE. PIV X2 REMOVED W/O DIFFICULTY. PT WALKED OUT OF HOSPITAL BY STAFF.
== END 2025-06-28 12:15 | disposition home or self-care (01) | DRG 897 ==
LOC: ER 13:34 → ERHOLD 16:10 → ICUE 16:58
PROVIDERS: Internal Medicine; Student in an Organized Health Care Education/Training Program; ADMIT Internal Medicine
DX: F10.231 Alcohol dependence with withdrawal delirium (principal); G40.89 Other seizures; E87.4 Mixed disorder of acid-base balance; E87.1 Hypo-osmolality and hyponatremia; D61.818 Other pancytopenia; E87.6 Hypokalemia; F41.9 Anxiety disorder, unspecified; R19.7 Diarrhea, unspecified; F10.232 Alcohol dependence with withdrawal with perceptual disturbance; F17.200 Nicotine dependence, unspecified, uncomplicated
CPT/HCPCS: 36415; 70450; 71045; 80048; 80053; 80069; 80320; 82607; 82746; 82803; 82947; 83605; 83735; 84100; 85025; 85027; 93005; 93010; 96365; 96375; 99285-25; A9270; J1650; J2060; J3360; J3411; J3480; J7030; J7042; J7050